=== PATIENT | male | born 1945 | race Two or more races ===

== ENCOUNTER 2022-02-16 11:39 | Inpatient (IN) | payer MEDICARE, OTHER ==
[~2022-02-16] VITALS: Ht 170.2 cm; Wt 82.6 kg
--- NOTE | 2022-02-16 11:55 | NUR ---
[id number] W/ YUNG, [place] CRISIS LINE CALLED YUN[place], VERBALIZING "HE WANT TO SHOOT HIMSELF." PD WILL PLACE PT ON 5150. PLACED ON BED, ABLE TO AMBULATE, AAOX4, COOPERATIVE- CALM, DENIES SI, BREATHING EVEN AND UNLABORED.
--- NOTE | 2022-02-16 12:00 | NUR ---
WILL CONTINUE TO MONITOR
--- NOTE | 2022-02-16 12:18 | NUR ---
[employer] 5150 HOLD EFFECTIVE 1210
[2022-02-16] MEDS ORDERED: SIMV-49 PO (12:31)
[2022-02-16] MEDS ORDERED: HYDR25TA4 PO (12:31)
[2022-02-16] MEDS ORDERED: TRAZ-182 PO (12:31)
[2022-02-16] MEDS ORDERED: FLUO20TA28 PO (12:31)
[2022-02-16] MEDS ORDERED: LOSA100T31 PO (12:31)
--- NOTE | 2022-02-16 12:39 | NUR ---
SWAB FOR COVID19 SENT TO LAB
[2022-02-16 13:09] LABS: BASOPHILS # (AUTO) 0.1 K/uL (0.0-0.2); EOSINOPHILS % (AUTO) 4.5 % (0.0-6.0); HEMATOCRIT 43 % (39-51); LYMPHOCYTES # (AUTO) 1.6 K/uL (0.8-4.8); LYMPHOCYTES % (AUTO) 21.9 % (20.0-44.0); MEAN CORPUSCULAR HGB CONC 32 g/dl (31.0-36.0); MEAN CORPUSCULAR VOLUME 88 fL (80-96); MONOCYTES # (AUTO) 0.7 K/uL (0.1-1.30); MONOCYTES % (AUTO) 8.9 % (2.0-12.0); NEUTROPHILS # (AUTO) 4.8 K/uL (1.8-8.9); NEUTROPHILS % (AUTO) 63.7 % (43.0-81.0); PLATELET COUNT (AUTO) 200 K/uL (150-450); RED BLOOD CELL COUNT(AUTO) 4.93 MIL/uL (4.5-6.0); WHITE BLOOD COUNT (AUTO) 7.5 K/uL (4.3-11.0)
[2022-02-16 13:13] LABS: CALCIUM, SERUM 9.1 mg/dL (8.5-10.1); CARBON DIOXIDE 26 mmol/L (21-32); CHLORIDE 105 mmol/L (98-107); CREATININE 0.9 mg/dL (0.6-1.3); GLUCOSE 100 mg/dL (74-106); POTASSIUM 3.7 mmol/L (3.5-5.1); SODIUM SERUM 138 mmol/L (136-145); UREA NITROGEN, BLOOD 15 mg/dL (7-18)
--- NOTE | 2022-02-16 13:20 | NUR ---
URINE SAMPLE SENT TO LAB
[2022-02-16 13:21] LABS: ALANINE AMINOTRANSFERASE 26 U/L (12-78); ALBUMIN 3.7 g/dL (3.4-5.0); ALKALINE PHOSPHATASE 56 U/L (46-116); ASPARTATE AMINOTRANSFERASE 21 U/L (15-37); BILIRUBIN,DIRECT 0.1 mg/dL (0.0-0.2); BILIRUBIN,TOTAL 0.3 mg/dL (0.2-1.0); TOTAL PROTEIN, SERUM 7.6 g/dL (6.4-8.2)
[2022-02-16 13:24] LABS: ACETAMINOPHEN < 10 ug/ml (10-30); ALCOHOL, BLOOD < 3 mg/dL (0-0)
[2022-02-16 13:47] LABS: BILIRUBIN,URINE NEGATIVE (NEGATIVE); COLOR,URINE YELLOW (YELLOW); LEUKOCYTE ESTERASE ,URINE NEGATIVE (NEGATIVE); NITRITE, URINE NEGATIVE (NEGATIVE); PROTEIN,URINE NEGATIVE (NEGATIVE); UGLUCOSE NEGATIVE (NEGATIVE); UROBILINOGEN,URINE 0.2 EU/dL (0.2)
--- NOTE | 2022-02-16 16:06 | NUR ---
ALAN discussed 5150 case with SS director, Raegan Lam who stated this pt. to possibly be admitted to [facility]. Per raegan Prince she notified Nursing supervisor reclamation. This SW notified ED RN that intake will provide admission information.
--- NOTE | 2022-02-16 16:50 | NUR ---
ALAN called [facility] [[id number] [facility], [place], [place] [id number] and spoke to OTS, Carlos Manuel about transfer to their [facility] for treatment. Per Carlos Manuel they have no beds available and for our intke dept. to call "[employer] [phone]" to get auth to admit pt. here at [facility]. ALAN discusssed thi with Darren from [facility] intake dept and he stated he willcall the above stated number for authorization.
--- NOTE | 2022-02-16 17:25 | NUR ---
REPORT GIVEN TO LISA GUTHRIE FOR GURWINDER
[2022-02-16] MEDS ORDERED: FLUOXETINE HCL 20 MG CAPSULE PO SCH (17:30)
[2022-02-16] MEDS ORDERED: HYDROCHLOROTHIAZIDE 25 MG TABLET PO SCH (17:30)
[2022-02-16] MEDS ORDERED: LOSARTAN POTASSIUM 50 MG TABLET PO SCH (17:30)
[2022-02-16] MEDS ORDERED: LOSARTAN POTASSIUM 50 MG TABLET ONE (17:32)
[2022-02-16] MEDS ORDERED: HYDROCHLOROTHIAZIDE 25 MG TABLET ONE (17:34)
[2022-02-16 18:28] VITALS: BP 144/73
[2022-02-16] MEDS ORDERED: BLOOD SUGAR DIAGNOSTIC 1 EACH STRIP IN ONE (18:30)
[2022-02-16] MEDS ORDERED: MAG HYDROX/AL HYDROX/SIMETH 30 ML UDC PO PRN (18:30)
[2022-02-16] MEDS ORDERED: MAGNESIUM HYDROXIDE 30 ML UDC PO PRN (18:30)
--- NOTE | 2022-02-16 18:40 | NUR ---
NURSE NOTE: ACCU CHECK DONE AT THIS TIME. BS 90.
--- NOTE | 2022-02-16 18:43 | NUR ---
Pt. arrived in the unit from ER and wheeled by ER staff on 5150 for DTS. Pt. placed on 215A, v/s taken and contraband done. Dr. Dukes made aware of the admission and gave orders. Medical doctor is aware of the admission and reconciled meds. Will endorse to the incoming nurse for the completion of the admission.
[2022-02-16 19:30] VITALS: BP 128/78
[2022-02-16] MEDS: LORAZEPAM 1 MG TABLET PO PRN (19:36)
--- NOTE | 2022-02-16 19:37 | NUR ---
RN NOTES: ANXIETY PT. C/O ANXIETY , PARANOID ,RESTLESS, HYPERVERBAL, PRN ATIVAN 1 MG PO GIVEN PER PT. REQUEST, WILL CONTINUE TO MONITOR.
--- NOTE | 2022-02-16 20:21 | NUR ---
[facility] RN NOTE, PATIENT HAS A COMPLAINT THAT HE TAKES TRAZODONE 50MG PO HS. PAGED DR CARRINGTON AND INFORMED HIM OF MY FINDINGS. DR CARRINGTON ORDERED TO STOP AMBIEN 5MG PO HS AND ORDERED TRAZODONE 50MG PO HS. DR CARRINGTON DID A TELEPHONE CONSENT FORM WITH TWO NURSES SIGNING OFF ON IT. ALL ORDERS NOTED AND CARRIED OUT. WILL CONTINUE TO MONITOR THIS PATIENT WITH THE HELP OF STAFF.
[2022-02-16 20:49] VITALS: BP 147/69
[2022-02-16] MEDS: SIMVASTATIN 20 MG TABLET PO SCH (21:13)
[2022-02-16] MEDS: TRAZODONE 50 MG TABLET PO SCH (21:14)
[2022-02-16] MEDS ORDERED: SIMVASTATIN 20 MG TABLET PO SCH ×2 (22:00)
[2022-02-16] MEDS ORDERED: ZOLPIDEM TARTRATE 5 MG TABLET PO PRN (22:00)
--- NOTE | 2022-02-16 22:52 | NUR ---
RN NOTES : ADMISSION NOTES: ADMITTED THIS 76Y/O MALE PATIENT ADMIT FROM [facility] ED , INITIALLY FROM HOME. ADMITTED TO 5150 HOLD DTS , PER HOLD PT. HAS SUICIDAL IDEATION, UPON FACE TO FACE ASSESSMENT PATIENT IS A&O X4, ANXIOUS,HYPERVERBAL,EASILY AGITAED ,RESTLESS,PARANOID, COOPERTIVE, FOCUS ON DISCHARGE,PER PT. STATES I AM NOT BELONG TO BE HERE ,DENIES SI /HI AT THIS TIME, PT. IS POOR HISTORIAN, POOR INSIGHT ,POOR JUDGEMENT , BOTH MD AWARE AND NOTIFIED OF THE ADMISSION, BELONGINGS CONTRABAND DONE, PT. RIGHTS DISCUSS BY STRATEGY DIRECTOR , PROVIDE THE PT. WITH HANDBOOK, AND MEDICATIONS GUIDE, ENVIRONMENTAL SAFETY CHECK DONE, ENCOURAGED PT. VERBALIZED ANY FEELING CONCERN TO STAFF, ORIENT TO UNIT POLICY, NO ACUTE DISTRESS NOTED,VITAL SIGNS WNL ,DENIES ANY PAIN AT THIS TIME,WILL CONTINUE TO MONITOR FOR Q15 SAFETY AND BEHAVIOR.
[2022-02-17 08:00] VITALS: BP 142/78
[2022-02-17 08:32] LABS: ALBUMIN 3.5 g/dL (3.4-5.0); BILIRUBIN,TOTAL 0.6 mg/dL (0.2-1.0); CALCIUM, SERUM 9.3 mg/dL (8.5-10.1); CREATININE 0.9 mg/dL (0.6-1.3); POTASSIUM 3.3 mmol/L (3.5-5.1)
[2022-02-17] MEDS: LOSARTAN POTASSIUM 50 MG TABLET PO SCH (08:34)
[2022-02-17] MEDS: HYDROCHLOROTHIAZIDE 25 MG TABLET PO SCH (08:35)
[2022-02-17 08:36] LABS: CHOLESTEROL 159 mg/dL (<200); HDL CHOLESTEROL 47 mg/dL (40-60); LDL 103 mg/dL (0-99); TRIGLYCERIDES 68 mg/dL (30-150)
[2022-02-17] MEDS ORDERED: Medication Not On Formulary EA (Losartan Potassium 100 MG) PO SCH (09:00)
[2022-02-17] MEDS ORDERED: POTASSIUM CHLORIDE 20 MEQ POWDER PACKET PO ONE (11:00)
[2022-02-17] MEDS: ACETAMINOPHEN 325 MG TABLET PO PRN (14:56)
--- NOTE | 2022-02-17 15:09 | NUR ---
Dr. Dukes ordered to start the Prozac po now.
[2022-02-17 16:00] VITALS: BP 127/59
[2022-02-17] MEDS: FLUOXETINE HCL 20 MG CAPSULE PO SCH (16:54)
--- NOTE | 2022-02-17 17:00 | NUR ---
NURSE NOTE: PT C/O HEADACHE. ASKED FOR TYLENOL. TYLENOL ADMIN ORDERED. WILL CONT TO MONITOR.
--- NOTE | 2022-02-17 18:00 | NUR ---
NURSE NOTE: PT STATED HE NO LONGER HAS A HEADACHE. TYLENOL EFFECTIVE AT THIS TIME. WILL CONT TO MONITOR.
--- NOTE | 2022-02-17 18:55 | NUR ---
NURSE NOTE: PT IS COOPERATIVE WITH CARE ,ALERT AND ORT X3, GUARDED, NO ACUTE DISTRESS NOTED. MED COMPLIANT. WAS UPSET IN AM, BUT REFLECTED AND FEELS REMORSE. ABLE TO DO ADL'S FOR SELF. ALL NEEDS ATTENDED AND ANTICIPATED. AMBULATORY, STEADY GAIT. WILL CONT. MONITORING FOR SAFETY AND BEHAVIOR. WILL ENDORSE TO INCOMING SHIFT FOR CONTINUITY OF CARE
--- NOTE | 2022-02-17 19:30 | NUR ---
[facility] RN NOTE, RECEIVED PATIENT AWAKE AND IN BED, NO S/S OR COMPLAINTS OF PAIN AT THIS TIME. PATIENT IS DISPLAYING NO S/S OF APPARENT DISTRESS AT THIS TIME. PATIENT BREATHING IS UNLABORED WITH EQUAL RISE AND FALL OF THE CHEST. PATIENT IS ALERT AND ORIENTED X 3 ON ROOM AIR WITH A SPO2 95%. PATIENT IS COMPLIANT WITH MEDICATIONS, ANXIOUS, HYPERVERBAL, AND COOPERATIVE. PATIENT DENIES SUICIDAL AND HOMICIDAL IDEATIONS AT THIS TIME. PATIENT ASSISTED WITH TURNING AND REPOSITIONING Q2HR AND PRN FOR COMFORT AND CIRCULATION. PATIENT HAS NO NEEDS AT THIS TIME. PATIENT EDUCATED ON THE USE OF THE CALL IRVING. PATIENT BED SIDE RAILS UP X 2 FOR SAFETY. PATIENT BED IS LOCKED, LOW, WITH BED ALARM ON. WILL CONTINUE TO MONITOR THIS PATIENT Q15 MINUTES WITH THE HELP OF STAFF TO MAINTAIN SAFETY.
[2022-02-17 20:47] VITALS: BP 115/69
[2022-02-17] MEDS: SIMVASTATIN 20 MG TABLET PO SCH (21:48)
[2022-02-17] MEDS: TRAZODONE 50 MG TABLET PO SCH (21:49)
[2022-02-18 08:00] VITALS: BP 129/77
[2022-02-18] MEDS: HYDROCHLOROTHIAZIDE 25 MG TABLET PO SCH (08:27)
[2022-02-18] MEDS: FLUOXETINE HCL 20 MG CAPSULE PO SCH (08:27)
[2022-02-18] MEDS: LOSARTAN POTASSIUM 50 MG TABLET PO SCH (08:28)
[2022-02-18] MEDS ORDERED: FLUOXETINE HCL 20 MG CAPSULE PO SCH (09:00)
--- NOTE | 2022-02-18 10:15 | NUR ---
RN-CO: Patient os entitled and needy. He is depressed and he stated that he is not improving bec he believes that he is under medicated. However, he denied suicidal ideation.
[2022-02-18] MEDS: ACETAMINOPHEN 325 MG TABLET PO PRN (13:26)
--- NOTE | 2022-02-18 13:26 | NUR ---
RN-CO: TYLENOL 650 MG GIVEN FOR C/O HEADACHE 09/26.
[2022-02-18 16:08] VITALS: BP 122/63
--- NOTE | 2022-02-18 19:15 | NUR ---
[facility] RN NOTES RECEIVED PATIENT IN HIS ROOM SITTING IN BED. A/OX3. NO S/SX OF ACUTE DISTRESS NOTED. ABLE TO MAKE NEEDS KNOWN. PATIENT IS ANXIOUS, NEEDY, ISOLATIVE. NO VERBALIZATION OF THOUGHTS AND FEELINGS. ENCOURAGED PATIENT TO ATTEND IN GROUP ACTIVITIES. SAFETY PRECAUTIONS MAINTAINED. WILL CONTINUE TO MONITOR Q15MIN ROUNDS FOR SAFETY AND BEHAVIOR.
[2022-02-18 20:22] VITALS: BP 126/68
[2022-02-18] MEDS: TRAZODONE 50 MG TABLET PO SCH (21:06)
[2022-02-18] MEDS: SIMVASTATIN 20 MG TABLET PO SCH (21:06)
[2022-02-18] MEDS: LORAZEPAM 1 MG TABLET PO PRN (21:40)
[2022-02-19 08:00] VITALS: BP 123/70
[2022-02-19] MEDS: FLUOXETINE HCL 20 MG CAPSULE PO SCH ×2 (08:17→09:00)
[2022-02-19] MEDS: LOSARTAN POTASSIUM 50 MG TABLET PO SCH ×2 (08:18→09:00)
[2022-02-19] MEDS: HYDROCHLOROTHIAZIDE 25 MG TABLET PO SCH ×2 (08:19→09:00)
[2022-02-19 09:00] VITALS: BP 123/70
--- NOTE | 2022-02-19 09:06 | NUR ---
SW Discharge Note: Patient will return back home with son Dayanara ([phone]) located at [address] [place] [id number]; ([phone]). Patient is across the hospital and stated he will walk home. Patient is alert and oriented x4. Patient denies suicidal or homicidal ideation. Patient denies visual/auditory hallucinations. Patient initially resides in [place] he is here in [place] for a visit. Patient will follow up with his (Psychiatrist) Dr. Olya Matthews located at [address] [place] [phone]; ([phone]) who will monitor and provide patients psychotropic medications.
--- NOTE | 2022-02-19 09:33 | NUR ---
ALAN Initial Discharge Note: Patient currently resides at [address] [place] [address]; ([phone]) with his son. Pt initially lives in [place] and he came to visit family. ALAN will work with the MD, family, and treatment team to help coordinate appropriate discharge.
--- NOTE | 2022-02-19 09:33 | NUR ---
ALAN Clinical Note: Patient placed on a 5150 hold for danger to himself. Pt was brought to the hospital due to suicidal ideations. Patient currently resides at [address] [place] [address]; ([phone]) with his son. Pt initially lives in [place] and he came to visit family.
--- NOTE | 2022-02-19 09:34 | NUR ---
Treatment Plan: Pt refused to sign his treatment plan and did not agree with his admission.
--- NOTE | 2022-02-19 10:30 | NUR ---
Patient discharged to home in stable condition.Compliant with medications ,cooperative with treatment plans Patient denies SI/HI/AVH .Behavior improved ,psychiatric tx plans met medical tx plans differed for for continual monitoring .Educated pt about after care plan (Exit -care)and copy provided Returned personal belongings to patient med list given and explained to patient able to verbalize understanding .Vs stable ,no c/o pain Patient seen by and jigna AUTOMATED EQUIPMENT ENGINEER TECHNICIAN with discharge orders .Patient discharge at 1030 .
== END 2022-02-19 10:20 | disposition home or self-care (01) | DRG 885 ==
LOC: ER 11:45 → GPS 17:23
PROVIDERS: ADMIT Psychiatry & Neurology Psychiatry; ATTEND Nurse Practitioner Acute Care
DX: F31.60 Bipolar disorder, current episode mixed, unspecified (principal); R45.851 Suicidal ideations; F43.10 Post-traumatic stress disorder, unspecified; I10 Essential (primary) hypertension; R45.850 Homicidal ideations; E78.5 Hyperlipidemia, unspecified
CPT/HCPCS: 36415; 80048-TC; 80053-TC; 80061-TC; 80076-TC; 82962-TC; 85025-TC; 87081-TC; C9803; G0480